=== PATIENT | male | born 1975 | race African-American/Black ===

== ENCOUNTER 2017-06-18 04:58 | Emergency (ER) | payer SELFPAY | END 2017-06-18 05:15 | disposition home or self-care (01) | LOC: D.ER 04:58 | DX: A64 Unspecified sexually transmitted disease (principal); A54.01 Gonococcal cystitis and urethritis, unspecified ==

== ENCOUNTER 2019-07-24 10:10 | Emergency (ER) | payer MEDICAID ==
[~2019-07-24] VITALS: Ht 172.7 cm; Wt 59.1 kg
[2019-07-24 10:15] VITALS: Ht 172.7 cm; Wt 59.1 kg
[2019-07-24] MEDS ORDERED: ANUSOL-HC25 MG RC (10:54)
[2019-07-24] MEDS ORDERED: TYLENOL W/CODEI1 TAB PO (10:54)
[2019-07-24] MEDS ORDERED: ANUSOL-HC 2.5%30 GM RC (10:56)
[2019-07-24 11:15] VITALS: BP 122/62
== END 2019-07-24 11:15 | disposition home or self-care (01) ==
LOC: D.ER 10:10
DX: K64.5 Perianal venous thrombosis (principal); J45.909 Unspecified asthma, uncomplicated; Z72.0 Tobacco use